=== PATIENT | male | born 1945 | race Caucasian/White ===

== ENCOUNTER → 2022-04-09 | Day surgery (SDC) | payer MEDICARE ==
[~2022-04-09] VITALS: Ht 167.6 cm; Wt 83.5 kg
[~2022-04-09] MED LIST: ASPIRIN CHEWABL81 MG PO; ATENOLOL25 MG PO; HCTZ25 MG PO; LASIX20 MG PO; NORCO 5-325 TA1 EACH PO; NORVASC5 MG PO; PRAVACHOL40 MG PO; PROSCAR5 MG PO; UROCIT-K10 MEQ PO; ZESTRIL2.5 MG PO
== END | disposition home or self-care (01) ==
LOC: FAS 06:54
DX: Z12.11 Encounter for screening for malignant neoplasm of colon (principal); D12.3 Benign neoplasm of transverse colon; I25.10 Atherosclerotic heart disease of native coronary artery without angina pectoris; E78.00 Pure hypercholesterolemia, unspecified; I10 Essential (primary) hypertension; I25.2 Old myocardial infarction
CPT/HCPCS: J2704; J7120